=== PATIENT | female | born 1970 | race Caucasian/White ===

== ENCOUNTER 2020-04-11 02:55 | Emergency (ER) | payer SELFPAY ==
[~2020-04-11] VITALS: Ht 165.1 cm; Wt 63.6 kg
[2020-04-11] MEDS ORDERED: IV NORMAL SALINE 1,000ML 1,000 ML IV ONE (03:15)
--- NOTE | 2020-04-11 03:18 | PHYS DOC ---
Past History Past Medical History: Anxiety, Pancreatitis Past Medical History Limited secondary to alcohol intoxication (JIMMY PATE DO) Past Surgical History Limited secondary to alcohol intoxication (JIMMY PATE DO) Alcohol Use: Heavy Drug Use: None Social History Limited secondary to alcohol intoxication (JIMMY PATE DO) General Adult EDM: Chief Complaint: MECHANICAL FALL HPI: HPI: 49-year-old female presents via EMS with report of fall off a barstool earlier tonight at approximately 0100. Report that patient struck the back of her head. Patient denied any loss of consciousness. Patient reports significant headach e. Denies any neck pain. Denies use of blood thinners. Patient had returned home and was complaining to son who became concerned and called EMS. Patient reports drinking approximately 12 beers and several shots this evening. Patient reports history of drinking approximately 12 beers weekly. Denies any drug use. History of present illness limited secondary to alcohol intoxication. (JIMMY PATE DO) Review of Systems: Review of Systems: Constitutional: Denies fever or chills HENT: Denies epistaxis Respiratory: Denies cough or shortness of breath Cardiovascular: Denies chest pain or palpitations GI: Reports nausea; denies vomiting Musculoskeletal: Denies neck pain Integument: Denies laceration; reports scalp contusion Neurologic: Reports headache; denies focal weakness or sensory changes Review of systems limited secondary to alcohol intoxication (JIMMY PATE DO) Current Medications: Current Meds: Current Medications Medications (Trade) Dose Ordered Sig/Luis E Start Time Stop Time Status Last Admin Dose Admin Multivit/ Folic Acid/Iron (Multivitamin ) 1 tab 1X ONCE 04/11/20 03:15 04/11/20 03:16 UNV Sodium Chloride 1,000 ml @ 1,000 mls/hr 1X ONCE 04/11/20 03:00 04/11/20 03:59 UNV Thiamine HCl 100 mg/Sodium Chloride 51 ml @ 102 mls/hr DAILY 04/11/20 09:00 UNV (JIMMY PATE DO) Allergies: Allergies: Allergies Coded Allergies Type Severity Reaction Last Updated Verified morphine Allergy Unknown 04/11/20 Yes (JIMMY PATE DO) Physical Exam: PE: Constitutional: Well developed, well nourished, intoxicated HENT: Occipital scalp contusion noted, atraumatic, TMs clear bilaterally Eyes: PERRL, EOMI, conjunctiva normal, no discharge, horizontal nystagmus noted Neck: Supple, c-collar in place Lungs & Thorax: No respiratory distress, equal chest rise and fall Abdomen: Soft, no tenderness; pelvis stable and nontender Skin: Warm, dry, no erythema, scalp contusion to occiput noted Back: No tenderness, no CVA tenderness Extremities: No tenderness, ROM intact, no edema Neurologic: Alert and oriented X 3, slurred speech, inebriated, no focal deficits noted Psychologic: Affect normal, judgment abnormal (JIMMY PATE DO) EKG: EKG: @0310 NSR at 72bpm, NO ST elevation, QRS 90ms, QT/QTc 402/442ms, j point elevation to II and aVF (JIMMY PATE DO) Radiology/Procedures: Radiology/Procedures: PROCEDURE: CT HEAD AND CERVICAL SPINE WO STUDY: CT head and cervical spine without contrast INDICATION: Headache. Neck pain. Fall. COMPARISON: None. TECHNIQUE: Axial CT imaging through the head and cervical spine without the use of intravenous contrast. Sagittal and coronal reformats were obtained. One or more of the following individualized dose reduction techniques were utilized for this examination: 1. Automated exposure control 2. Adjustment of the mA and/or kV according to patient size 3. Use of iterative reconstruction technique. FINDINGS: CT head: No acute intracranial hemorrhage. Normal souza-white matter interface. No localized mass effect, midline shift or hydrocephalus. Localized scalp hematoma posteriorly and to the left centered over the parietal bone. No depressed calvarial fracture. Small amount of fluid within the left maxillary sinus favored inflammatory in etiology given density. Unremarkable orbits. Normally aerated mastoid air cells and middle ears. CT cervical spine: No acute fracture. Developmental nonunion across the posterior arch of C1. Grade 1 anterolisthesis of C5 on C6 and trace anterolisthesis of C7 on T1. Reversal of cervical lordosis. Accelerated discogenic arthrosis at C6-C7. Widened interspinous interval from C5-C6 through C7-T1 favored compensatory from kyphotic curvature. Mild scattered facet arthrosis. No severe osseous central canal or neural foraminal stenosis. No soft tissue sequela of trauma seen throughout the neck. Emphysema. IMPRESSION: CT head: 1. No acute intracranial abnormality by CT. 2. Posterior/left scalp contusion without an associated depressed calvarial fracture. CT cervical spine: 1. No acute fracture or traumatic malalignment. 2. Mild listhesis at a few levels on a background of cervical kyphosis and degenerative changes greatest at C6-C7. No severe osseous central canal or neural foraminal stenosis. Electronically signed by: FANY MENON MD (04/11/2020 3:53 AM) [facility] (JIMMY PATE DO) Course & Med Decision Making: Course & Med Decision Making Pertinent Labs and Imaging studies reviewed. (See chart for details) 49-year-old female presents via EMS with report of EtOH intoxication and history of fall off of a barstool striking the back of her head. Patient poor historian secondary to acute intoxication. C-collar in place by EMS. No focal deficit appreciated. No deformity or other pain noted. Patient does complain of some headache with associated nausea. Pain and nausea addressed. CT head/cervical spine without acute process. Labs obtained and posted to chart. EtOH approximately 300. EKG stable. Troponin within normal limits. IV fluid hydration given. Thiamine IV piggyback and vitamin provided. Patient monitored in emergency department. Patient appears more coherent. C- collar cleared. UA pending. 0600- Signout given to Dr. Pulido, for further evaluation and final disposition. Discussed current findings and plan with patient, who acknowledges understanding and agreement. (JIMMY PATE DO) Course & Med Decision Making Patient reevaluated by myself in ED. Patient now medically sober, steady gait,m GCS 15 w/[facility]. Reports she has a primary care appointment on Thursday. States she has vague recollections from the prior night "I drink all the time but never forget things." C/o vague recall of being at the bar and home - unsure how she got home or who called 911. RN called son who reported pt had drank too much alcohol and c/o headache after hitting her head falling off a bar stool, no LOC- son does not suspect pts' drink was rophied. Pt denies any known psychical or sexual assault/activity. I encouraged police report and offered uds - pt has not provided urine sample after multiple attempts. Encouraged urgent pcp followup for drug testing (educated this usually requires a toxicology lab and should be done expediently but not emergently). Reports her headache is almost gone. Steady gait with no neurologic complaints. In no distress/comfortable appearing. Will discharge home with strict ED return precautions for neurologic deficits, nausea, vomiting, headache or confusion. Encouraged urgent outpatient follow-up with PMD and neurology as needed headache should persist/for potential concussion evaluation. Life-threatening processes were considered but are low suspicion at this time, given history, physical exam and ED workup. Pt was educated on all prescription medications and adverse effects. All patient's questions were answered and pt was stable at time of discharge. Life/limb-threatening differential includes but is not limited to, meningitis, encephalitis, intracranial hemorrhage, obstructive hydrocephaly, CVA, carbon monoxide poisoning, cerebral or cavernous venous thrombosis, hypertensive emergency, preeclampsia, giant cell arteritis, glaucoma, carotid or vertebral artery dissection, superior vena cava syndrome, infection, optic neuritis, or space-occupying lesions. Life/limb-threatening differential includes but is not limited to, intracranial hemorrhage, diffuse axonal injury, spinal cord syndrome, unstable cervical fracture or SCIWORA, fractures or joint dislocations, neurovascular injuries, organ injury or laceration, pneumothorax, pneumoperitoneum, pericardial tamponade, unstable pelvic fracture, compartment syndrome, flail chest or respiratory distress, burn injury or asphyxiation I spoken with the patient and her caregivers. I explained the patient's condition, diagnoses and treatment plan based on the information available to me at this time. I have answered the patient and her caregiver's questions and addressed any concerns. The patient and her caregivers have a good understanding of patient's diagnosis, condition and treatment plan as can be expected at this point. Vital signs have been stable. Patient's condition is stable and appropriate for discharge from the emergency department. Patient will pursue further outpatient evaluation with primary care physician or other designated or consulting physician as outlined in the discharge instructions. The patient and/or caregivers are agreeable to this plan of care and follow-up instructions have been explained in detail. The patient and/or caregivers have received these instructions in written form and have expressed an understanding of the discharge instructions. The patient and/or caregivers are aware that any significant change of condition or worsening of symptoms should prompt immediate return to this or the closest emergency department or call to 911. (ZACHARY PULIDO DO) Flash Disclaimer: Flash Disclaimer: This electronic medical record was generated, in whole or in part, using a voice recognition dictation system. (JIMMY PATE DO) Departure Departure: Impression: Primary Impression: Alcohol intoxication Qualified Codes: F10.920 - Alcohol use, unspecified with intoxication, u ncomplicated Additional Impressions: Scalp contusion Qualified Codes: S00.03XA - Contusion of scalp, initial encounter Headache Disposition: 01 DC HOME SELF CARE/HOMELESS Condition: STABLE Referrals: DENITA NOLAN MD FOLLOW UP WITH FAMILY MEDICINE: Complete [facility], [facility] [address] [place] [address] [address] [place] [address] OR [facility] [address] [facility], Patient Instructions: Alcohol Intoxication, Contusion, Head Injury, Adult, Headache, FAQs Additional Instructions: FOLLOW UP WITH NEUROLOGY: for recurrent or persistent headaches/concussion followup Ashley Magana MD [address] [facility], [address] [place] [address] OR [address] [place] [address] EMERGENCY DEPARTMENT GENERAL DISCHARGE INSTRUCTIONS Thank you for coming to [facility] (ED) today and trusting us with you care. We trust that you had a positivie experience in our Emergency Department. If you wish to speak to the department management, you may call the director at [phone]. YOUR FOLLOW UP INSTRUCTIONS ARE FOLLOWS: 1. Do you have a private Doctor? If you do not have a private doctor, please ask for a resource list of physicians or clinics that may be able to assist you with follow up care. 2. The Emergency Physician has interpreted your x-rays. The X-Ray specialist w ill also review them. If there is a change in the findings, you will be notified in 48 hours when at all possible. 3. A lab test or culture has been done, your results will be reviewed and you will be notified if you need a change in treatment. ADDITIONAL INSTRUCTIONS AND INFORMATION: 1. Your care today has been supervised by a physician who is specially trained in emergency care. Many problems require more than one evaluation for a complete diagnosis and treatment. We recommend that you schedule your follow up appointment as recommended to ensure complete treatment of you illness or injury. If you are unable to obtain follow up care and continue to have a problem, or if your condition worsens, we recommend that you return to the ED. 2. We are not able to safely determine your condition over the phone nor are we able to give sound medical advice over the phone. For these safety reasons, if you call for medical advice we will ask you to come to the ED for further evaluation. 3. If you have any questions regarding these discharge instructions please call the ED at [phone]. SAFETY INFORMATION: In the interest of safety, wellness, and injury prevention; we encourage you to wear your sealbelt, if you smoke; quite smoking, and we encourage family to use a protective helmet for bicycling and other sporting events that present an increased risk for head injury. IF YOUR SYMPTOMS WORSEN OR NEW SYMPTOMS DEVELOP, OR YOU HAVE CONCERNS ABOUT YOUR CONDITION; OR IF YOUR CONDITION WORSENS WHILE YOU ARE WAITING FOR YOUR FOLLOW UP APPOINTMENT; EITHER CONTACT YOUR PRIMARY CARE DOCTOR, THE PHYSICIAN WHOSE NAME AND NUMBER YOU WERE GIVEN, OR RETURN TO THE ED IMMEDIATELY. JIMMY PATE DO Apr 11, 2020 03:18 ZACHARY PULIDO DO Apr 11, 2020 07:39
[2020-04-11] MEDS ORDERED: KETOROLAC 15 MG/ML VIAL. IVP ONE (03:45)
[2020-04-11] MEDS ORDERED: PRENATAL MULTIVITAMIN TABLET. PO ONE (03:45)
--- NOTE | 2020-04-11 03:55 | RAD ---
STUDY: CT head and cervical spine without contrast INDICATION: Headache. Neck pain. Fall. COMPARISON: None. TECHNIQUE: Axial CT imaging through the head and cervical spine without the use of intravenous contra st. Sagittal and coronal reformats were obtained. One or more of the following individualized dose reduction techniques were utilized for this examinat ion: 1. Automated exposure control 2. Adjustment of the mA and/or kV according to patient size 3. Use of iterative reconstruction technique. FINDINGS: CT head: No acute intracranial hemorrhage. Normal souza-white matter interface. No localized mass effect, midli ne shift or hydrocephalus. Localized scalp hematoma posteriorly and to the left centered over the parietal bone. No depressed ca lvarial fracture. Small amount of fluid within the left maxillary sinus favored inflammatory in etiol ogy given density. Unremarkable orbits. Normally aerated mastoid air cells and middle ears. CT cervical spine: No acute fracture. Developmental nonunion across the posterior arch of C1. Grade 1 anterolisthesis of C5 on C6 and trace anterolisthesis of C7 on T1. Reversal of cervical lordosis. Accelerated discogeni c arthrosis at C6-C7. Widened interspinous interval from C5-C6 through C7-T1 favored compensatory fro m kyphotic curvature. Mild scattered facet arthrosis. No severe osseous central canal or neural rodney inal stenosis. No soft tissue sequela of trauma seen throughout the neck. Emphysema. IMPRESSION: CT head: 1. No acute intracranial abnormality by CT. 2. Posterior/left scalp contusion without an associated depressed calvarial fracture. CT cervical spine: 1. No acute fracture or traumatic malalignment. 2. Mild listhesis at a few levels on a background of cervical kyphosis and degenerative changes grea test at C6-C7. No severe osseous central canal or neural foraminal stenosis. Electronically signed by: FANY MENON MD (04/11/2020 3:53 AM) [facility]
[2020-04-11] MEDS ORDERED: THIAMINE 200 MG/2 ML VIAL. IV ONE (04:11)
[2020-04-11] MEDS ORDERED: IV NORMAL SALINE 50ML 50 ML ONE (04:11)
--- NOTE | 2020-04-11 04:34 | EKG ---
[address] [address] Test Date: 2020-04-11 Test Time: 03:10:10 Pat Name: BRISA MONTANEZ Department: Room: Gender: F [employer]: : 1970 Requested By: JIMMY PATE Order Number: [id number] Reading MD: Measurements Intervals [place]gins Rate: 72 P: 51 WY: 162 QRS: 63 QRSD: 90 T: 60 QT: 402 QTc: 442 Interpretive Statements SINUS RHYTHM NORMAL ECG RI6.02 No previous ECG available for comparison
[2020-04-11 04:44] LABS: BASO # 0.1 x10^3/uL (0.0-0.2); BASO % 0 % (0-3); EOS % 0 % (0-3); HEMATOCRIT 44.1 % (36.0-47.0); HEMOGLOBIN 14.6 g/dL (12.0-15.5); LYMPH # 1.7 x10^3/uL (1.0-4.8); LYMPH % 15 % (24-48); MEAN CORPUSCULAR HEMOGLOBIN 31 pg (25-35); MEAN CORPUSCULAR HGB CONC 33 g/dL (31-37); MEAN CORPUSCULAR VOLUME 94 fL (79-100); MONO # 0.3 x10^3/uL (0.0-1.1); MONO % 3 % (0-9); NEUT # 9.7 x10^3uL (1.8-7.7); NEUT % 82 % (31-73); PLATELET COUNT 279 x10^3/uL (140-400); RED CELL DISTRIBUTION WIDTH 13.6 % (11.5-14.5); WHITE BLOOD COUNT 11.8 x10^3/uL (4.0-11.0)
[2020-04-11 04:56] LABS: CALCIUM 8.6 mg/dL (8.5-10.1); CREATININE 0.7 mg/dL (0.6-1.0); GFR 88.9; POTASSIUM 4.1 mmol/L (3.5-5.1)
[2020-04-11 04:58] LABS: PREG TEST PT QUAL NEGATIVE (NEG)
[2020-04-11 05:11] LABS: ALBUMIN 3.7 g/dL (3.4-5.0); ALBUMIN/GLOBULIN RATIO 1.1 (1.0-1.7); TOTAL BILIRUBIN 0.1 mg/dL (0.2-1.0); TOTAL PROTEIN 7.1 g/dL (6.4-8.2)
[2020-04-11] MEDS ORDERED: MULTIVITAMIN with MINERAL TABLET. ONE (05:13)
[2020-04-11] MEDS ORDERED: MULTIVITAMIN with MINERAL TABLET. PO ONE (07:00)
[2020-04-11 07:14] LABS: BARBITURATES NEG (NEG); BENZODIAZEPINES NEG (NEG); CANNABINOIDS NEG (NEG); COCAINE NEG (NEG); METHADONE NEG (NEG); OPIATES NEG (NEG); PHENCYCLIDINE NEG (NEG)
[2020-04-11 07:16] LABS: AMPHETAMINE/METHAMPHETAMINE NEG (NEG)
[2020-04-11 07:19] LABS: BACTERIA,URINE 0 /HPF (0-FEW); BILIRUBIN,URINE NEG (NEG); CLARITY,URINE CLEAR; COLOR,URINE YELLOW; GLUCOSE,URINE NEG (NEG); NITRITE,URINE NEG (NEG); RBC,URINE 0 /HPF (0-2); SQUAMOUS EPITHELIAL CELL,UR OCC /LPF; UROBILINOGEN,URINE 0.2 mg/dL (0.2 mg/dL); WBC,URINE RARE /HPF (0-4)
[2020-04-11 07:25] VITALS: BP 120/67
[2020-04-11] MEDS ORDERED: diphenhydrAMINE HCL 25 MG CAPSULE PO ONE (08:30)
[2020-04-11] MEDS ORDERED: ACETAMINOPHEN 325 MG TABLET PO ONE (08:30)
[2020-04-11] MEDS ORDERED: PROCHLORPERAZINE 10 MG/2 ML VIAL. IM ONE (08:30)
[2020-04-11] MEDS ORDERED: DEXAMETHASONE 4 MG TABLET PO ONE (08:30)
[2020-04-11] MEDS ORDERED: THIAMINE INJ 100 MG in IV NORMAL SALINE 50ML 50 ML IV SCH (09:00)
== END 2020-04-11 09:06 | disposition home or self-care (01) ==
LOC: ER 02:55
DX: S00.03XA Contusion of scalp, initial encounter (principal); R51.9 Headache, unspecified; F10.229 Alcohol dependence with intoxication, unspecified; Y90.8 Blood alcohol level of 240 mg/100 ml or more; Z88.5 Allergy status to narcotic agent; W07.XXXA Fall from chair, initial encounter; Y93.89 Activity, other specified; Y92.89 Other specified places as the place of occurrence of the external cause; Y99.8 Other external cause status
CPT/HCPCS: 36415; 70450; 72125; 80053; 80307; 81001; 82553; 83735; 84484; 84703; 85025; 85610; 85730; 93005; 96365; 96372; 96375; 99285; G0480; J0780; J1885; J7030; J8540; Q0163